=== PATIENT | female | born 1985 | race Caucasian/White ===

== ENCOUNTER 2018-04-10 06:23 | Emergency (ER) | payer MEDICAID, SELFPAY ==
[2018-04-10] MEDS ORDERED: predniSONE 20 MG TAB ONE (07:27)
--- NOTE | 2018-04-10 07:41 | RAD ---
FRONTAL RADIOGRAPH CHEST: DATE: 04/10/2018. COMPARISON: None. HISTORY: Short of breath. FINDINGS: The lungs are clear. Heart and mediastinal contours unremarkable. IMPRESSION: No acute findings. POS: [facility]
[2018-04-10] MEDS ORDERED: Albuterol Sulfate 2.5 mg/3 ml Neb ONE (07:52)
== END 2018-04-10 08:49 | disposition home or self-care (01) ==
LOC: ERS 06:23
DX: J40 Bronchitis, not specified as acute or chronic (principal)
CPT/HCPCS: 71045; J7506; J7611; J7620